=== PATIENT | male | born 1970 | race Hispanic/Latino ===

== ENCOUNTER 2018-10-24 10:32 | Outpatient (CLI) | payer OTHER ==
--- NOTE | 2018-10-24 11:32 | RAD ---
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 FINDINGS: Cardiac and mediastinal silhouette is within normal limits. Lungs appear clear. No pleural fluid or p neumothorax is apparent. IMPRESSION: Normal two view chest radiograph. POS: [facility]
== END 2018-10-24 10:33 | disposition home or self-care (01) ==
LOC: NAV RAD 10:32
PROVIDERS: ATTEND Nurse Practitioner Family
DX: R76.11 Nonspecific reaction to tuberculin skin test without active tuberculosis (principal)
CPT/HCPCS: 71046

== ENCOUNTER 2018-11-26 07:55 | Outpatient (CLI) | payer OTHER ==
--- NOTE | 2018-11-26 09:52 | ULT ---
ABDOMEN ULTRASOUND: HISTORY: Elevated LFTs. COMPARISON: None. TECHNIQUE: Real-time trujillo-scale and color evaluation of the abdomen was performed. FINDINGS: The visualized portions of the pancreas are unremarkable. There is diffuse increased hepatic echotex ture with a nodular contour of the liver. Prior cholecystectomy. Common bile duct measures 7 mm. The spleen is enlarged, measuring 13 cm in length. The portal vein peak systolic velocity is approxi mately 10 cm per second, decreased. The common bile duct measures 6 mm. The right kidney measures 11.7 x 4.5 x 5.5 cm without mass, hydronephrosis, or abnormal calcification s. The left kidney measures 14 x 14.5 x 6.5 cm without mass, hydronephrosis, or abnormal calcifications. IMPRESSION: 1. Nodular contour of the liver with a coarsened echotexture, suggesting cirrhosis. 2. Decreased peak systolic velocity of the main portal vein, suggesting portal hypertension. 3. Mild splenomegaly, also suggesting portal hypertension. POS: [facility]
== END 2018-11-26 07:56 | disposition home or self-care (01) ==
LOC: NAV ULT 07:55
PROVIDERS: ATTEND Nurse Practitioner Family
DX: R94.5 Abnormal results of liver function studies (principal)
CPT/HCPCS: 76700